=== PATIENT | female | born 1960 | race Caucasian/White ===

== ENCOUNTER 2016-11-15 14:10 | Emergency (ER) | payer OTHER ==
[2016-11-15 14:26] VITALS: BP 124/86
[2016-11-15] MEDS ORDERED: TYLENOL PO ONE (15:49)
--- NOTE | 2016-11-15 15:55 | Emergency Department Report ---
HPI - General Chief Complaint: Earache Time Seen by Provider: 11/15/16 15:32 - HPI HPI: The patient is a 56-year-old female presents for evaluation of ear pain. The patient reports bilateral ear pain since last night, constant since onset, pressure-like in quality, mild to moderate in severity, improving. Patient denies trauma to the head, headache, tinnitus, decreased hearing, facial paresthesias, facial drooping, slured speech, blurry vision, other neuro deficit , hemoptysis, dyspnea, or recent URI or diarrhea. ED Past Medical Hx - Past Medical History Previous Medical History?: Yes Hx Hypertension: Yes Hx Diabetes: Yes Additional medical history: High cholesterol - Surgical History Past Surgical History?: No - Social History Smoking Status: Never Smoker Substance Use Type: Prescribed - Medications Home Medications: Home Medications Medication Instructions Recorded Confirmed Last Taken Type Meclizine [Antivert] 25 mg PO TID PRN #20 tablet 11/15/16 Unknown Rx ED Review of Systems ROS: Stated complaint: BOTH EARS CLOGGED /PAIN Other details as noted in HPI Constitutional: denies: fever ENT: reports ear pain denies: throat or neck pain Respiratory: denies: cough, shortness of breath Cardiovascular: denies: chest pain Endocrine: denies unexplained weight loss or gain Gastrointestinal: denies: abdominal pain, nausea Genitourinary: denies: dysuria Musculoskeletal: denies: leg swelling Skin: denies: rash Neurological: denies: headache Hematological/Lymphatic: denies: easy bleeding or easy bruising Psych: denies sadness or hopelessness Physical Exam - Physical Exam Vital Signs: Vital Signs 11/15/16 14:22 Temperature 98.7 F Pulse Rate 90 Respiratory 18 Rate Blood Pressure 124/86 O2 Sat by Pulse 100 Oximetry Physical Exam: General: well-nourished, well-developed, no acute distress Head: Normocephalic, atraumatic Eyes: normal sclera ENT: Mucous membranes are pink and moist, normal tympanic membranes bilaterally , no middle ear effusion, no bulging of tympanic membranes, positive light reflex, equal bilateral conductive and sensorineural hearing Neck: trachea midline, neck supple, No neck stiffness, no cervical adenopathy Respiratory: Breath sounds equal bilaterally, no wheezing, rales, or rhonchi Cardio: S1 and S2 present, no murmurs, rubs, gallops, capillary refill is brisk Abdomen: Normoactive bowel sounds, soft abdomen, no tenderness Musc: No pitting edema Skin: No rash Neuro: AOx3, no facial drooping, normal speech, no lateralizing weakness, no sensation motor deficit in the arms or legs, reflexes 2+ symmetric on DTR testing, no coordination deficit with finger to nose testing, romberg negative, patient to ablate without abnormal gait Psych: Normal affect ED Course Vital Signs 11/15/16 14:22 Temperature 98.7 F Pulse Rate 90 Respiratory 18 Rate Blood Pressure 124/86 O2 Sat by Pulse 100 Oximetry ED Medical Decision Making - Medical Decision Making The patient was seen and examined by myself. On initial evaluation, the patient was found to be in no distress. Examination is negative for otitis media, cerumen impaction, or findings suggestive of stroke etiology of patient' s symptoms. Patient given a tablet of Tylenol for her pain. The patient was reevaluated and reported that their symptoms were improved. The patient is stable for discharge with outpatient follow-up. The patient is given follow-up and return instructions. The patient expressed understanding and agreed with the plan. The patient is discharged in stable condition. Critical care attestation.: If time is entered above; I have spent that time in minutes in the direct care of this critically ill patient, excluding procedure time. ED Disposition Clinical Impression: Acute ear pain Qualifiers: Laterality: bilateral Qualified Code(s): H92.03 - Otalgia, bilateral Disposition: DISCHARGED TO HOME OR SELFCARE Is pt being admited?: No Does the pt Need Aspirin: No Condition: Stable Instructions: Meniere Disease (ED), Earache (ED) Prescriptions: Meclizine [Antivert] 25 mg PO TID PRN #20 tablet PRN Reason: Vertigo Referrals: PAWEL WOOTEN MD [Staff Physician] - 3-5 Days Time of Disposition: 15:52
== END 2016-11-15 16:01 | disposition home or self-care (01) ==
LOC: ED 14:10
DX: H92.03 Otalgia, bilateral (principal); I10 Essential (primary) hypertension; E11.9 Type 2 diabetes mellitus without complications; E78.00 Pure hypercholesterolemia, unspecified
CPT/HCPCS: 99282